=== PATIENT | male | born 1940 | race Caucasian/White ===

== ENCOUNTER 2019-09-28 06:37 | Emergency (ER) | payer OTHER, BC ==
[~2019-09-28] VITALS: Ht 185.4 cm; Wt 94.8 kg
[2019-09-28 06:48] VITALS: BP_SYST 138
[2019-09-28] MEDS ORDERED: LIDOCAINE/EPI 1% 1:100000 20 ML VIAL IJ ONE (07:15)
[2019-09-28] MEDS ORDERED: BACITRACIN 1 GM OINT TP ONE (07:15)
--- NOTE | 2019-09-28 07:18 | NUR ---
Patient to ER bed 3 to gown for evaluation. Side rails up.
--- NOTE | 2019-09-28 07:20 | NUR ---
Pt arrives from home s/p an unwitnessed fall. Pt was prescribed an sleeping pill and took double the dose. Pt felt that one pill was not working. Pt has a lac over the right eyebrow. No other c/o at the moment
--- NOTE | 2019-09-28 07:32 | NUR ---
ER at bedside examining patient.
--- NOTE | 2019-09-28 07:38 | NUR ---
Patient transported to radiology via gurney, accompanied by radiographer mammographer.
--- NOTE | 2019-09-28 07:45 | NUR ---
pt returned from CT scan
[2019-09-28 08:30] VITALS: BP_SYST 138
--- NOTE | 2019-09-28 08:30 | NUR ---
Patient given written and verbal discharge instructions and verbalizes understanding. ER MD discussed with patient the results and treatment provided. Patient in stable condition. ID arm band removed. Patient educated on pain management and to follow up with PMD. Pain Scale 0/10. Opportunity for questions provided and answered. Medication side effect fact sheet provided.
== END 2019-09-28 08:30 | disposition home or self-care (01) ==
LOC: SED 06:37
DX: S01.111A Laceration without foreign body of right eyelid and periocular area, initial encounter (principal); S09.8XXA Other specified injuries of head, initial encounter; I10 Essential (primary) hypertension; E11.9 Type 2 diabetes mellitus without complications; G47.00 Insomnia, unspecified; Z90.49 Acquired absence of other specified parts of digestive tract; W18.39XA Other fall on same level, initial encounter; Y93.89 Activity, other specified; Y92.098 Other place in other non-institutional residence as the place of occurrence of the external cause; Y99.8 Other external cause status
CPT/HCPCS: 70450-TC; 99284